=== PATIENT | male | born 1950 | race Caucasian/White ===

== ENCOUNTER 2018-12-28 11:33 | Day surgery (SDC) | payer OTHER ==
[~2018-12-28] VITALS: Ht 175.3 cm; Wt 74.4 kg
[~2018-12-28 11:33] MED LIST: Aspirin EC81 MG PO; L-Lysine500 M1 PO; NITR.4SL SL; PANT40 PO; SIMV40 PO; Valerian Root500 MG PO
== END 2018-12-28 14:04 | disposition home or self-care (01) ==
LOC: ORSCSDS 11:33
PROVIDERS: Surgery
PROC: 0DJD8ZZ Inspection of Lower Intestinal Tract, Via Natural or Artificial Opening Endoscopic (ICD-10-PCS; principal; 2018-12-28 13:00)
DX: K62.5 Hemorrhage of anus and rectum (principal); K64.8 Other hemorrhoids; K57.30 Diverticulosis of large intestine without perforation or abscess without bleeding
CPT/HCPCS: J2704; J7120

== ENCOUNTER 2022-04-06 12:23 | Day surgery (SDC) | payer OTHER ==
[~2022-04-06] VITALS: Ht 175.3 cm; Wt 74.3 kg
[2022-04-06] MEDS ORDERED: ALLERCLEAR10 MG (13:16)
--- NOTE | 2022-04-06 13:22 | NUR ---
04/06/22 1322 Jazmine Ramirez TETRACAINE DROP PLACED IN RIGHT EYE AT 1317 PLEDGET PLACED IN RIGHT EYE AT 1319 CALL LIGHT WITHIN REACH
== END 2022-04-06 14:38 | disposition home or self-care (01) ==
LOC: ORSCSDS 12:23
PROVIDERS: Ophthalmology
PROC: 08DJ3ZZ Extraction of Right Lens, Percutaneous Approach (ICD-10-PCS; principal; 2022-04-06 14:00)
DX: H25.11 Age-related nuclear cataract, right eye (principal); I25.2 Old myocardial infarction; R06.02 Shortness of breath; I25.10 Atherosclerotic heart disease of native coronary artery without angina pectoris; K21.9 Gastro-esophageal reflux disease without esophagitis; F43.10 Post-traumatic stress disorder, unspecified; Z87.891 Personal history of nicotine dependence; Z79.82 Long term (current) use of aspirin; Z79.899 Other long term (current) drug therapy
CPT/HCPCS: J2001; J2250; J3010; J3301; J7040; V2632